=== PATIENT | female | born 1970 | race Caucasian/White ===

== ENCOUNTER → 2022-03-25 | Outpatient (CLI) | payer BC ==
--- NOTE | 2022-03-25 17:52 | Diagnostic Imaging Report ---
CLINICAL HISTORY: Left foot pain. COMPARISON: None. TECHNIQUE: 3 views of the left foot. FINDINGS: There is no acute fracture or dislocation of the left foot. Alignment is anatomic. The imaged joint spaces are preserved. No focal osseous lesion is seen. IMPRESSION: No acute fracture or dislocation of the left foot. Dictated by: Dictated on workstation # [id number]
== END ==
LOC: RAD 13:41
PROVIDERS: ATTEND Nurse Practitioner Family
DX: M79.672 Pain in left foot (principal); M25.475 Effusion, left foot; W19.XXXA Unspecified fall, initial encounter
CPT/HCPCS: 73630